=== PATIENT | male | born 1950 | race Two or more races ===

== ENCOUNTER 2022-12-08 05:30 | Day surgery (SDC) | payer OTHER ==
[~2022-12-08 05:30] MED LIST: ADCIRCA20 MG PO; ATACAND16 MG PO; SYNTHROID125 MCG PO; UROXATRAL10 MG PO
== END 2022-12-08 11:25 | disposition home or self-care (01) ==
LOC: CIR.AMB 05:30
PROVIDERS: ATTEND Orthopaedic Surgery
DX: M75.121 Complete rotator cuff tear or rupture of right shoulder, not specified as traumatic (principal); M24.121 Other articular cartilage disorders, right elbow; Z20.822 Contact with and (suspected) exposure to COVID-19